=== PATIENT | female | born 1975 | race Caucasian/White ===

== ENCOUNTER → 2018-08-05 | Outpatient (REF) ==
[2015-10-28 11:28] VITALS: BMI 23.4
[~2018-08-05] MED LIST: BO30S PR; CELE-1 PO; CEPH500C24 PO; CIP500 PO; DOC100 PO; ESTR-33 PO; ESTR1VAG6 VG; FAM20 PO; HYDR2TAB4 PO; IBU600 PO; IBUP800T37 PO; LOR1 PO; LOR5 PO; LOR5/325 PO; LORA-636 PO; OXYC-865 PO; PER PO; PHENA200 PO; SERT-173 PO; SULF-198 PO; TAMS0.4C76 PO; TOLT4CAP13 PO; TOPI100T PO
[2018-08-05 12:27] LABS: LDL CHOLESTEROL 70 mg/dl
== END ==
DX: Z02.9 Encounter for administrative examinations, unspecified (principal)

== ENCOUNTER → 2018-11-13 | Outpatient (CLI) | payer BC ==
[2015-10-28 11:28] VITALS: BMI 23.4
[2018-11-13 09:40] LABS: PLATELET COUNT, AUTOMATED 260 K/uL (150-450)
== END ==
LOC: LAB 09:12
PROVIDERS: ATTEND Surgery
DX: R19.7 Diarrhea, unspecified (principal); R10.9 Unspecified abdominal pain
CPT/HCPCS: 36415; 82040; 82247; 82274; 82310; 82374; 82435; 82565; 82705; 82947; 83630; 83690; 84075; 84132; 84155; 84295; 84450; 84460; 84520; 85025; 87045; 87177; 87205; 87324; 87449

== ENCOUNTER → 2018-12-09 | Outpatient (CLI) | payer BC ==
[2015-10-28 11:28] VITALS: BMI 23.4
[~2018-12-09] MED LIST changes: +BUDE3CAP6 PO; +NITR-105 PO; +PHEN200T32 PO
== END ==
LOC: LAB 16:51
PROVIDERS: ATTEND Advanced Practice Midwife
DX: R30.0 Dysuria (principal); R82.79 Other abnormal findings on microbiological examination of urine
CPT/HCPCS: 87088

== ENCOUNTER → 2019-05-30 | Outpatient (CLI) | payer BC ==
[2015-10-28 11:28] VITALS: BMI 23.4
--- NOTE | 2019-05-30 14:16 | RADIOLOGY IMAGING REPORT ---
FACILITY: [facility] PATIENT NAME: DAQUAN GREENE : [id number] MR: [id number] V: [id number] EXAM DATE: [id number] ORDERING PHYSICIAN: JEANNE RAMOS TECHNOLOGIST: Marley Hansen PROCEDURE: BILATERAL DIGITAL SCREENING MAMMOGRAM WITH CAD ASSISTED INTERPRETATION & 3D TOMOSYNTHESIS REASON FOR STUDY: Screening. FAMILY HISTORY OF BREAST CANCER: None. FAMILY HISTORY OF OVARIAN CANCER: Maternal grandmother. BREAST PROCEDURES/TREATMENTS: None. COMPARISON: 06/22/16. VIEWS OBTAINED: Bilateral 2D & 3D full field CC & MLO projections. BREAST DENSITY: The breasts are heterogeneously dense which can obscure small masses. MAMMOGRAM FINDINGS: There is a focal asymmetry just posterior to mid nipple line on the Left CC view in the anterior depth best appreciated on Tomographic slice 19 for which Spot compression view is recommended. There is a circumscribed nodule in the inferior portion of the Left breast in Left MLO view in the anterior depth best appreciated on Tomographic slice 10 for which Spot compression view is recommended. IMPRESSION: BIRADS 0: Incomplete. Additional views of the Left breast and possible Left breast Ultrasound recommended depending upon the additional imaging findings. DIAGNOSTIC CATEGORY 0--INCOMPLETE: NEED ADDITIONAL IMAGING EVALUATION. RECOMMENDATIONS: ADDITIONAL MAMMOGRAPHIC VIEWS REQUIRED: LEFT BREAST. ULTRASOUND: LEFT BREAST. Dictated by: Diandra Andrews M.D. on 05/30/2019 at 11:43 Transcribed by: COLETTE on 05/30/2019 at 14:01 Approved by: Diandra Andrews M.D. on 05/30/2019 at 14:10 [facility]
== END ==
LOC: MAMO 04:18
PROVIDERS: ATTEND Family Medicine
DX: Z12.31 Encounter for screening mammogram for malignant neoplasm of breast (principal); R92.8 Other abnormal and inconclusive findings on diagnostic imaging of breast
CPT/HCPCS: 77063; 77067

== ENCOUNTER → 2019-06-04 | Outpatient (CLI) | payer BC ==
[2015-10-28 11:28] VITALS: BMI 23.4
--- NOTE | 2019-06-04 14:05 | RADIOLOGY IMAGING REPORT ---
FACILITY: [facility] [place] PATIENT NAME: DAQUAN GREENE : [id number] MR: [id number] V: [id number] EXAM DATE: [id number] ORDERING PHYSICIAN: JEANNE RAMOS TECHNOLOGIST: Marley Hansen PROCEDURE:LEFT DIGITAL MAMMOGRAM DIAGNOSTIC WITH CAD ASSISTED INTERPRETATION & 3D TOMOSYNTHESIS REASON FOR STUDY: Abnormal Screening Mammogram. COMPARISON STUDIES: 05/30/19 as well as priors 06/22/16 & 06/23/11. MAMMOGRAM BREAST DENSITY: The Left breast has scattered fibroglandular densities. MAMMOGRAM FINDINGS: With additional imaging there is potentially a persistent small circumscribed nodular mass in the 6 o'clock area of the breast. No architectural distortion or suspicious calcifications. The asymmetry in the CC view on the screening exam effaces. ULTRASOUND ULTRASOUND FINDINGS: Imaging of the inferior Left breast concentrating the 6 o'clock area was done. Ultrasound does show a single anechoic 5mm cyst 3cm from the nipple at 6 o'clock which would correlate with the mammographic mass. No other concerning finding. DIAGNOSTIC CATEGORY 2--BENIGN FINDING. RECOMMENDATIONS: ROUTINE MAMMOGRAM IN 1YR AND CLINICAL EVALUATION. IMPRESSION: BIRADS 2: Benign finding. I reviewed the Ultrasound at the exam completion and the technologist conveyed benign results to the patient for me. Dictated by: Keshav Kirby on 06/04/2019 at 11:53 Transcribed by: COLETTE on 06/04/2019 at 13:44 Approved by: Keshav Kirby on 06/04/2019 at 13:59 [facility]
--- NOTE | 2019-06-04 14:05 | RADIOLOGY IMAGING REPORT ---
FACILITY: [facility] PATIENT NAME: DAQUAN GREENE : [id number] MR: [id number] V: [id number] EXAM DATE: [id number] ORDERING PHYSICIAN: JEANNE RAMOS TECHNOLOGIST: Mariama Harrell RDMS(ABD,OBGYN,BR),RVT PROCEDURE:LEFT DIGITAL MAMMOGRAM DIAGNOSTIC WITH CAD ASSISTED INTERPRETATION & 3D TOMOSYNTHESIS REASON FOR STUDY: Abnormal Screening Mammogram. COMPARISON STUDIES: 05/30/19 as well as priors 06/22/16 & 06/23/11. MAMMOGRAM BREAST DENSITY: The Left breast has scattered fibroglandular densities. MAMMOGRAM FINDINGS: With additional imaging there is potentially a persistent small circumscribed nodular mass in the 6 o'clock area of the breast. No architectural distortion or suspicious calcifications. The asymmetry in the CC view on the screening exam effaces. ULTRASOUND ULTRASOUND FINDINGS: Imaging of the inferior Left breast concentrating the 6 o'clock area was done. Ultrasound does show a single anechoic 5mm cyst 3cm from the nipple at 6 o'clock which would correlate with the mammographic mass. No other concerning finding. DIAGNOSTIC CATEGORY 2--BENIGN FINDING. RECOMMENDATIONS: ROUTINE MAMMOGRAM IN 1YR AND CLINICAL EVALUATION. IMPRESSION: BIRADS 2: Benign finding. I reviewed the Ultrasound at the exam completion and the technologist conveyed benign results to the patient for me. Dictated by: Keshav Kirby on 06/04/2019 at 11:53 Transcribed by: COLETTE on 06/04/2019 at 13:45 Approved by: Keshav Kirby on 06/04/2019 at 13:59 [facility]
== END ==
LOC: MAMO 00:48
PROVIDERS: ATTEND Family Medicine
DX: N60.02 Solitary cyst of left breast (principal)
CPT/HCPCS: 77061; 77065